=== PATIENT | female | born 1970 | race Caucasian/White ===

== ENCOUNTER 2016-09-25 11:26 | Emergency (ER) | payer OTHER ==
[~2016-09-25] VITALS: Ht 165.1 cm; Wt 138.6 kg
[~2016-09-25 11:26] MED LIST: ABILIFY2 MG PO; ADDERALL20 MG PO; ADDERALL30 MG PO; ADVAIR HFA120 INHALA IH; AEROECLIPSE1 EACH MC; ALLERGY10 M1 PO; B COMPLETE1 EACH PO; BREO ELLIPTA I1 EACH IH; BRINTELLIX10 MG PO; BUPROPION XL300 MG PO; CYANOCOBALAM1000 MCG PO; EFFEXOR XR150 MG PO; FLEXERIL10 MG PO; FLONASE16 G1 BOTH NARES; GLUCOPHAGE1000 MG PO; HYDROCODON-ACE1 EAC5 PO; IPRATR-ALBUTEROL3 ML IH; KLONOPIN0.5 M1 PO; KLONOPIN1 MG PO; LANTUS 10100 UNITS/ SC; LANTUS 3 M100 UNITS1 SC; LASIX20 MG PO; LEVOFLOXACIN750 MG PO; LOFIBRA,TRIGLI160 MG PO; LOVASTATIN20 MG PO; METOPROLOL TAR100 MG PO; MEVACOR40 MG PO; MS CONTIN,ORAMO15 M1 PO; NEXIUM 24HR20 M1 PO; NOVOLOG PE100 UNITS/ SC; PREDNISONE20 MG PO; PREDNISONE50 MG PO; PROMETHAZINE HC25 M1 PO; PROVENTIL,2.5 MG/3 M IH; SINGULAIR10 MG PO; SPIRIVA1 INHALATI IH; TRAZODONE HCL100 MG PO; VENTOLIN HFA18 GM IH; VERAPAMIL HCL80 MG PO; VITAMIN B12 100MCG PO; VITAMIN D31000 UNIT PO; WELLBUTRIN XL150 MG PO; ZESTORETIC 20-1 EAC1 PO
[2016-09-25 12:41] LABS: HEMATOCRIT 43.3 % (36.0-46.0); MCH 28.1 PG (29.0-34.0); MCHC 31.2 G/DL (30.0-36.0); MCV 90.2 FL (83-99); MEAN PLAT.VOLUME 10.8 uM^3 (9.5-12.4); PLATELET COUNT 262 K/uL (156-360); RBC DIS.WIDTH-CV 14.3 % (11.8-14.6); RBC DIS.WIDTH-SD 47.2 % (39-53); WHITE BLOOD COUNT 8.3 K/uL (4.1-10.2)
[2016-09-25 12:55] LABS: CHLORIDE 98 mEq/L (99-109); SODIUM 144 mEq/L (136-147)
[2016-09-25 12:57] LABS: GLUCOSE 145 mg/dL (70-99)
[2016-09-25 12:58] LABS: ANION GAP 16 MEQ/L (2-14)
[2016-09-25 13:01] LABS: GFR ESTIMATE (CALCULATED) 43 mL/min/
[2016-09-25 13:02] LABS: TROP-I INTERPRETATION NEGATIVE; TROPONIN-I < 0.01 ng/mL (0.0-0.30); UREA NITROGEN (BUN) 18 mg/dL (9-23)
[2016-09-25 13:04] LABS: POTASSIUM 5.2 mEq/L (3.7-5.4)
[2016-09-25 13:55] VITALS: BP 182/92
== END 2016-09-25 13:55 | disposition home or self-care (01) ==
LOC: EME 11:26
DX: E87.5 Hyperkalemia (principal); I10 Essential (primary) hypertension; J45.909 Unspecified asthma, uncomplicated; E78.5 Hyperlipidemia, unspecified; E11.9 Type 2 diabetes mellitus without complications; Z79.4 Long term (current) use of insulin; Z87.442 Personal history of urinary calculi; Z87.891 Personal history of nicotine dependence
CPT/HCPCS: 71020; 80048; 84484; 85027; 93005; 99281; 99284

== ENCOUNTER 2016-11-08 13:28 | Emergency (ER) | payer OTHER ==
[~2016-11-08] VITALS: Ht 165.1 cm; Wt 142.6 kg
[2016-11-08 13:50] LABS: HEMATOCRIT 40.5 % (36.0-46.0); MCH 28.8 PG (29.0-34.0); MCHC 33.1 G/DL (30.0-36.0); MCV 87.1 FL (83-99); MEAN PLAT.VOLUME 10.6 uM^3 (9.5-12.4); PLATELET COUNT 205 K/uL (156-360); RBC DIS.WIDTH-CV 15.1 % (11.8-14.6); RBC DIS.WIDTH-SD 47.9 % (39-53); RED BLOOD COUNT 4.65 M/uL (3.80-5.20); WHITE BLOOD COUNT 10.9 K/uL (4.1-10.2)
[2016-11-08 14:02] LABS: CHLORIDE 100 mEq/L (99-109); POTASSIUM 4.1 mEq/L (3.7-5.4); SODIUM 138 mEq/L (136-147)
[2016-11-08 14:03] LABS: GLUCOSE 168 mg/dL (70-99)
[2016-11-08 14:05] LABS: ANION GAP 15 MEQ/L (2-14)
[2016-11-08 14:07] LABS: GFR ESTIMATE (CALCULATED) > 59 mL/min/
[2016-11-08 14:08] LABS: UREA NITROGEN (BUN) 17 mg/dL (9-23)
[2016-11-08 15:29] LABS: TROP-I INTERPRETATION NEGATIVE; TROPONIN-I 0.01 ng/mL (0.0-0.30)
[2016-11-08 17:34] VITALS: BP 195/101
== END 2016-11-08 17:42 | disposition home or self-care (01) ==
LOC: EME 13:28
DX: I10 Essential (primary) hypertension (principal); R06.02 Shortness of breath; E11.9 Type 2 diabetes mellitus without complications; E78.5 Hyperlipidemia, unspecified; G89.29 Other chronic pain; Z79.4 Long term (current) use of insulin; Z87.442 Personal history of urinary calculi
CPT/HCPCS: 71020; 80048; 83880; 84443; 84484; 85027; 93005; 99281; 99285; J1940

== ENCOUNTER 2017-05-25 09:00 | Emergency (ER) | payer OTHER ==
[~2017-05-25] VITALS: Ht 165.1 cm; Wt 148.7 kg
[2017-05-25 09:41] LABS: BASOPHIL (%) 0.7 % (0-1); BASOPHIL COUNT 0.1 K/uL (0-0.1); EOSINOPHIL (%) 1.5 % (0-5); EOSINOPHIL COUNT 0.2 K/uL (0-0.3); HEMATOCRIT 41.6 % (36.0-46.0); HEMOGLOBIN 13.5 G/DL (11.9-15.5); IMMATURE GRANULOCYTE (%) 0.5 % (0.0-0.7); LYMPHOCYTE (%) 12.2 % (15-42); LYMPHOCYTE COUNT 1.9 K/uL (1.0-2.8); MCH 28.2 PG (29.0-34.0); MCHC 32.5 G/DL (30.0-36.0); MONOCYTE (%) 5.5 % (3-12); MONOCYTE COUNT 0.8 K/uL (0-0.8); NEUTROPHIL (%) 79.6 % (45-76); NEUTROPHIL COUNT 12.2 K/uL (1.8-6.4); PLATELET COUNT 299 K/uL (156-360); RBC DIS.WIDTH-CV 13.6 % (11.8-14.6); RBC DIS.WIDTH-SD 43.6 % (39-53); RED BLOOD COUNT 4.78 M/uL (3.80-5.20); WHITE BLOOD COUNT 15.3 K/uL (4.1-10.2)
[2017-05-25 09:48] LABS: ALBUMIN 3.9 g/dL (3.2-4.8); CHLORIDE 101 mEq/L (99-109); POTASSIUM 4.1 mEq/L (3.7-5.4)
[2017-05-25 09:49] LABS: MAGNESIUM 1.7 mg/dL (1.3-2.7); SODIUM 137 mEq/L (136-147)
[2017-05-25 09:51] LABS: GLUCOSE 216 mg/dL (70-99); TOTAL PROTEIN 7.4 g/dL (6.4-8.3)
[2017-05-25 09:53] LABS: TOTAL BILIRUBIN 0.4 mg/dL (0.0-1.0)
[2017-05-25 09:54] LABS: ALKALINE PHOSPHATASE 81 IU/L (3-129)
[2017-05-25 09:55] LABS: GFR ESTIMATE (CALCULATED) > 59 mL/min/
[2017-05-25 09:56] LABS: AST (GOT) 18 IU/L (2-34); UREA NITROGEN (BUN) 15 mg/dL (9-23)
[2017-05-25 09:58] LABS: TROP-I INTERPRETATION NEGATIVE; TROPONIN-I 0.01 ng/mL (0.0-0.30)
[2017-05-25 09:58] LABS: ALT (GPT) 22 IU/L (3-49)
[2017-05-25] MEDS ORDERED: PREDNISONE20 MG PO (15:14)
[2017-05-25] MEDS ORDERED: BACTRIM,SEPT1 TABLET PO (15:14)
[2017-05-25 15:31] VITALS: BP 148/96
== END 2017-05-25 15:34 | disposition home or self-care (01) ==
LOC: EME 09:00
PROVIDERS: Emergency Medicine
PROC: 0H9AXZZ Drainage of Inguinal Skin, External Approach (ICD-10-PCS; principal; 2017-05-25)
DX: L02.215 Cutaneous abscess of perineum (principal); N76.4 Abscess of vulva; J44.1 Chronic obstructive pulmonary disease with (acute) exacerbation; E11.9 Type 2 diabetes mellitus without complications; Z79.4 Long term (current) use of insulin; Z79.84 Long term (current) use of oral hypoglycemic drugs; E78.5 Hyperlipidemia, unspecified; G89.29 Other chronic pain; M54.9 Dorsalgia, unspecified; Z87.891 Personal history of nicotine dependence; Z87.442 Personal history of urinary calculi
CPT/HCPCS: 71046; 72193; 80053; 83735; 83880; 84484; 85025; 93005; 94640; 99281; 99285; J2930; J3010; J7040

== ENCOUNTER 2017-06-05 09:45 | Emergency (ER) | payer OTHER ==
[~2017-06-05] VITALS: Ht 165.1 cm; Wt 143.0 kg
[~2017-06-05 09:45] MED LIST changes: +BACTRIM,SEPT1 TABLET PO
[2017-06-05 10:20] LABS: BASOPHIL (%) 0.5 % (0-1); BASOPHIL COUNT 0.1 K/uL (0-0.1); EOSINOPHIL (%) 2.4 % (0-5); EOSINOPHIL COUNT 0.2 K/uL (0-0.3); HEMATOCRIT 41.5 % (36.0-46.0); HEMOGLOBIN 13.3 G/DL (11.9-15.5); IMMATURE GRANULOCYTE (%) 0.5 % (0.0-0.7); LYMPHOCYTE COUNT 1.9 K/uL (1.0-2.8); MCH 28.1 PG (29.0-34.0); MCV 87.7 FL (83-99); MONOCYTE (%) 5.6 % (3-12); MONOCYTE COUNT 0.5 K/uL (0-0.8); NEUTROPHIL COUNT 6.8 K/uL (1.8-6.4); PLATELET COUNT 303 K/uL (156-360); RED BLOOD COUNT 4.73 M/uL (3.80-5.20); WHITE BLOOD COUNT 9.6 K/uL (4.1-10.2)
[2017-06-05 10:26] LABS: INTER. NORMALIZED RATIO 1.2
[2017-06-05 10:28] LABS: PTT 29.5 SEC (25-37)
[2017-06-05 10:30] LABS: ALBUMIN 3.7 g/dL (3.2-4.8); CHLORIDE 104 mEq/L (99-109); POTASSIUM 4.7 mEq/L (3.7-5.4); SODIUM 138 mEq/L (136-147)
[2017-06-05 10:31] LABS: MAGNESIUM 1.9 mg/dL (1.3-2.7)
[2017-06-05 10:33] LABS: GLUCOSE 185 mg/dL (70-99); TOTAL PROTEIN 6.8 g/dL (6.4-8.3)
[2017-06-05 10:35] LABS: TOTAL BILIRUBIN 0.4 mg/dL (0.0-1.0)
[2017-06-05 10:36] LABS: ALKALINE PHOSPHATASE 75 IU/L (3-129)
[2017-06-05 10:37] LABS: CREATININE 1.3 mg/dL (0.6-1.3); GFR ESTIMATE (CALCULATED) 47 mL/min/
[2017-06-05 10:38] LABS: AST (GOT) 44 IU/L (2-34); UREA NITROGEN (BUN) 18 mg/dL (9-23)
[2017-06-05 10:40] LABS: ALT (GPT) 42 IU/L (3-49); LIPASE 81 U/L (1.0-51.0)
[2017-06-05 10:41] LABS: TROP-I INTERPRETATION NEGATIVE; TROPONIN-I 0.01 ng/mL (0.0-0.30)
[2017-06-05] MEDS ORDERED: LORTAB 5-325 M1 EACH PO (13:23)
[2017-06-05] MEDS ORDERED: MOTRIN800 MG PO (13:23)
[2017-06-05] MEDS ORDERED: LEVAQUIN750 MG PO (13:23)
[2017-06-05 14:12] VITALS: BP 151/99
== END 2017-06-05 14:15 | disposition home or self-care (01) ==
LOC: EME 09:45
PROVIDERS: Emergency Medicine
DX: J18.9 Pneumonia, unspecified organism (principal); J45.909 Unspecified asthma, uncomplicated; I10 Essential (primary) hypertension; E78.5 Hyperlipidemia, unspecified; E11.9 Type 2 diabetes mellitus without complications; Z79.4 Long term (current) use of insulin; Z87.442 Personal history of urinary calculi; Z87.891 Personal history of nicotine dependence
CPT/HCPCS: 71046; 71275; 80053; 83690; 83735; 84484; 85025; 85610; 85730; 93005; 94640; 99281; 99285; J3010